=== PATIENT | male | born 1975 | race Caucasian/White ===

== ENCOUNTER 2018-11-27 22:12 | Emergency (ER) | payer OTHER ==
--- NOTE | 2018-11-27 22:29 | EDPHYS ---
Physician Documentation [facility] Name: Melo Milner Age: 43 yrs Sex: Male : 1975 Arrival Date: 11/27/2018 Time: 22:15 Bed 8 Private MD: ED Physician Phuc Rodriguez HPI: 11/27 22:25 This 43 yrs old Male presents to ER via Ambulatory with complaints of Knee pkl Pain. 22:25 Onset: The symptoms/episode began/occurred this morning. Associated signs and symptoms: pkl Pertinent positives: swelling at site, itching. Historical: - Allergies: 22:19 No Known Allergies; fc - Home Meds: 22:19 None [Active]; fc - PMHx: 22:19 None; fc - PSHx: 22:19 Appendectomy; Cholecystectomy; fc - Immunization history:: Last tetanus immunization: unknown. - Social history:: Smoking status: Patient/guardian denies using tobacco, Patient uses alcohol, occasionally. - Ebola Screening: : Patient negative for fever greater than or equal to 101.5 degrees Fahrenheit, and additional compatible Ebola Virus Disease symptoms Patient denies exposure to infectious person Patient denies travel to an Ebola-affected area in the 21 days before illness onset. ROS: 22:25 Eyes: Negative for injury, pain, redness, and discharge, ENT: Negative for injury, pkl pain, and discharge, Neck: Negative for injury, pain, and swelling, Cardiovascular: Negative for chest pain, palpitations, and edema, Respiratory: Negative for shortness of breath, cough, wheezing, and pleuritic chest pain, Abdomen/GI: Negative for abdominal pain, nausea, vomiting, diarrhea, and constipation, Back: Negative for injury and pain, : Negative for injury, bleeding, discharge, and swelling. 22:25 MS/extremity: Positive for bite, swelling, warmth, of the right knee. 22:25 Neuro: Negative for altered mental status. Exam: 22:25 Head/Face: Normocephalic, atraumatic. Eyes: Pupils equal round and reactive to light, pkl extra-ocular motions intact. Lids and lashes normal. Conjunctiva and sclera are non-icteric and not injected. Cornea within normal limits. Periorbital areas with no swelling, redness, or edema. ENT: Nares patent. No nasal discharge, no septal abnormalities noted. Tympanic membranes are normal and external auditory canals are clear. Oropharynx with no redness, swelling, or masses, exudates, or evidence of obstruction, uvula midline. Mucous membranes moist. Neck: Trachea midline, no thyromegaly or masses palpated, and no cervical lymphadenopathy. Supple, full range of motion without nuchal rigidity, or vertebral point tenderness. No Meningismus. Chest/axilla: Normal chest wall appearance and motion. Nontender with no deformity. No lesions are appreciated. Cardiovascular: Regular rate and rhythm with a normal S1 and S2. No gallops, murmurs, or rubs. Normal PMI, no JVD. No pulse deficits. Respiratory: Lungs have equal breath sounds bilaterally, clear to auscultation and percussion. No rales, rhonchi or wheezes noted. No increased work of breathing, no retractions or nasal flaring. Abdomen/GI: Soft, non-tender, with normal bowel sounds. No distension or tympany. No guarding or rebound. No evidence of tenderness throughout. Back: No spinal tenderness. No costovertebral tenderness. Full range of motion. 22:25 Musculoskeletal/extremity: Extremities: grossly normal except: noted in the right knee: bite, swelling. 22:25 Neuro: Exam negative for acute changes. Vital Signs: 22:16 BP 129 / 93; Pulse 68; Resp 18; Temp 98.0(O); Pulse Ox 99% on R/A; Weight 104.33 kg fc (R); Height 6 ft. 4 in. (193.04 cm) (R); Pain 0/10; 22:48 BP 128 / 82; Pulse 58; Resp 16; Temp 98(O); Pulse Ox 100% ; Pain 0/10; tl1 22:16 Body Mass Index 28.00 (104.33 kg, 193.04 cm) MDM: 22:25 Data reviewed: vital signs, nurses notes. pkl 22:29 Patient medically screened. pkl Administered Medications: 22:30 Drug: Ancef 1 grams Route: IM; Site: right gluteus; tl1 22:49 Follow up: Response: No adverse reaction; No change in condition tl1 22:38 Drug: Neosporin Ointment 1 application Route: Topical; Site: affected area; tl1 22:49 Follow up: Response: No adverse reaction; Medication administered at discharge. tl1 Disposition: 11/27/18 22:29 Discharged to Home. Impression: Insect bite right knee. - Condition is Stable. - Prescriptions for Clindamycin HCl 150 mg Oral Capsule - take 1 capsule by ORAL route every 6 hours for 7 days; 28 capsule. Bactrim DS 800- 160 mg Oral Tablet - take 1 tablet by ORAL route every 12 hours for 7 days; 14 tablet. - Medication Reconciliation Form, Thank You Letter, Antibiotic Education, Prescription Opioid Use form. - Follow up: Private Physician; When: 5 - 6 days; Reason: Re-evaluation by your physician. - Problem is new. - Symptoms are unchanged. Signatures: Phuc Rodriguez MD MD pkl Reina Montesinos RN RN Sylvia Kendrick RN RN tl1 Shanice Henry RN RN tl2 Corrections: (The following items were deleted from the chart) 22:50 22:29 11/27/2018 22:29 Discharged to Home. Impression: Insect bite right knee. tl1 Condition is Stable. Forms are Medication Reconciliation Form, Thank You Letter, Antibiotic Education, Prescription Opioid Use. Follow up: Private Physician; When: 5 - 6 days; Reason: Re-evaluation by your physician. Problem is new. Symptoms are unchanged. pkl
--- NOTE | 2018-11-27 22:29 | ER ---
Nurse's Notes [facility] Name: Melo Milner Age: 43 yrs Sex: Male : 1975 Arrival Date: 11/27/2018 Time: 22:15 Bed 8 Private MD: Diagnosis: Insect bite right knee Presentation: 11/27 22:16 Presenting complaint: Patient states: that this am he noticed his right knee slightly fc red. The area has progressed over the day and it is also swollen and has a scab in the center of it. Transition of care: patient was not received from another setting of care. Onset of symptoms was November 27, 2018. Risk Assessment: Do you want to hurt yourself or someone else? Patient reports no desire to harm self or others. Initial Sepsis Screen: Does the patient meet any 2 criteria? No. Patient's initial sepsis screen is negative. Does the patient have a suspected source of infection? No. Patient's initial sepsis screen is negative. Care prior to arrival: None. 22:16 Method Of Arrival: Ambulatory 22:16 Acuity: BETTY 4 fc Historical: - Allergies: 22:19 No Known Allergies; fc - Home Meds: 22:19 None [Active]; fc - PMHx: 22:19 None; fc - PSHx: 22:19 Appendectomy; Cholecystectomy; fc - Immunization history:: Last tetanus immunization: unknown. - Social history:: Smoking status: Patient/guardian denies using tobacco, Patient uses alcohol, occasionally. - Ebola Screening: : Patient negative for fever greater than or equal to 101.5 degrees Fahrenheit, and additional compatible Ebola Virus Disease symptoms Patient denies exposure to infectious person Patient denies travel to an Ebola-affected area in the 21 days before illness onset. Screenin:18 Abuse screen: Denies threats or abuse. Nutritional screening: No deficits noted. fc Tuberculosis screening: No symptoms or risk factors identified. Fall Risk None identified. Assessment: 22:46 General: Appears in no apparent distress. comfortable, Behavior is calm, cooperative, tl1 appropriate for age. Pain: Denies pain. Neuro: No deficits noted. Cardiovascular: Denies chest pain. Respiratory: Airway is patent Trachea midline Respiratory effort is even, unlabored, Breath sounds are clear bilaterally. GI: Abdomen is non-distended, Bowel sounds present X 4 quads. Abd is soft and non tender X 4 quads. : No signs and/or symptoms were reported regarding the genitourinary system. Derm: Wound noted right knee Wound is large area of redness noted to right knee Reports tightness to right knee. Vital Signs: 22:16 BP 129 / 93; Pulse 68; Resp 18; Temp 98.0(O); Pulse Ox 99% on R/A; Weight 104.33 kg fc (R); Height 6 ft. 4 in. (193.04 cm) (R); Pain 0/10; 22:48 BP 128 / 82; Pulse 58; Resp 16; Temp 98(O); Pulse Ox 100% ; Pain 0/10; tl1 22:16 Body Mass Index 28.00 (104.33 kg, 193.04 cm) ED Course: 22:15 Patient arrived in ED. 22:16 Phuc Rodriguez MD is Attending Physician. 22:16 Arm band placed on Patient placed in an exam room, on a stretcher. 22:17 Triage completed. 22:18 Patient has correct armband on for positive identification. Bed in low position. Call light in reach. 22:18 No provider procedures requiring assistance completed. 22:49 Sylvia Poe, SABRA is Primary Nurse. tl1 22:49 Patient did not have IV access during this emergency room visit. tl1 Administered Medications: 22:30 Drug: Ancef 1 grams Route: IM; Site: right gluteus; tl1 22:49 Follow up: Response: No adverse reaction; No change in condition tl1 22:38 Drug: Neosporin Ointment 1 application Route: Topical; Site: affected area; tl1 22:49 Follow up: Response: No adverse reaction; Medication administered at discharge. tl1 Outcome: 22:29 Discharge ordered by . pkl 22:48 Discharged to home ambulatory. tl1 22:48 Condition: good 22:48 Discharge instructions given to patient, family, Instructed on discharge instructions, follow up and referral plans. medication usage, wound care, Demonstrated understanding of instructions, follow-up care, medications, wound care, Prescriptions given X 3. 22:50 Patient left the ED. tl1 Signatures: Phuc Rodriguez MD MD pkl Chretien, Felicia, RN RN Lasagna, Sylvia, RN RN tl1
[2018-11-27] MEDS ORDERED: LIDOCAINE 1% MPF 2 ML AMPULE ONE (22:41)
[2018-11-27] MEDS ORDERED: CEFAZOLIN SODIUM 1 GM/VIAL ONE (22:41)
== END 2018-11-27 22:50 | disposition home or self-care (01) ==
LOC: ER 22:12
DX: S80.261A Insect bite (nonvenomous), right knee, initial encounter (principal)
CPT/HCPCS: 96372; 99283; J0690; J2001